=== PATIENT | female | born 1945 | race Caucasian/White ===

== ENCOUNTER 2021-03-26 13:16 | Inpatient (IN) | payer OTHER, MEDICAID ==
[~2021-03-26] VITALS: Ht 157.5 cm; Wt 55.6 kg
[2021-03-26 14:34] LABS: Basophils # (auto) 0.1 10 ^3/uL (0-0.2); Basophils % (auto) 0.5 % (0.0-2.0); Eosinophils # (auto) 0.3 10 ^3/uL (0-0.8); Eosinophils % (auto) 1.9 % (0.0-7.0); Hematocrit 31.9 % (36.0-46.0); Hemoglobin 10.4 g/dL (12.2-16.2); Lymphocytes # (auto) 1.4 10 ^3/uL (0.4-5.4); Lymphocytes % (auto) 9.6 % (10.0-50.0); Mean Corpuscular Hemoglobin 28.8 pg (28.0-32.0); Mean Corpuscular Hgb Conc. 32.7 g/dL (32.0-36.0); Mean Corpuscular Volume 88.2 fL (80.0-100.0); Monocytes # (auto) 0.7 10 ^3/uL (0-1.3); Monocytes % (auto) 4.6 % (0.0-12.0); Neutrophils % (auto) 83.4 % (37.0-80.0); Nucleated Red Blood Cells % 0.1 %; Platelet Count (auto) 438 10^3/uL (140-450); Red Blood Cells 3.62 10^6/uL (4.0-5.20); White Blood Cell 14.3 10^3/uL (4.4-10.8)
[2021-03-26 14:39] LABS: Albumin 3.4 g/dL (3.4-5.0); Anion Gap 11 (5-15); Blood Urea Nitrogen 76 mg/dL (7-18); Calcium 8.7 mg/dL (8.5-10.1); Carbon Dioxide 21 mmol/L (21-32); Chloride 109 mmol/L (98-107); Glucose 180 mg/dL (74-106); Potassium 4.3 mmol/L (3.5-5.1); Sodium 141 mmol/L (136-145)
[2021-03-26 14:44] LABS: Alanine Aminotransferase 13 U/L (13-56); Alkaline Phosphatase 91 U/L (45-117); Aspartate Aminotransferase 15 U/L (15-37); BUN/Creatinine Ratio 39.8; Bilirubin, Total 0.3 mg/dL (0.2-1.0); GFR African American 33 mL/min; GFR Non-African American 27 mL/min; Total Protein 7.4 g/dL (6.4-8.2)
[2021-03-26] MEDS ORDERED: MORPHINE SULF INJ 2 MG/ML SYRINGE 1ML IV ONE (14:45)
[2021-03-26] MEDS ORDERED: ONDANSETRON HCL 4 MG/2 ML VIAL IV ONE (14:45)
[2021-03-26] MEDS ORDERED: NEOMYCIN-BACITRACIN-POLYM UNITDOSE PKG TOP OINT TOP ONE ×2 (15:54→16:00)
[2021-03-26] MEDS ORDERED: MORPHINE SULF INJ 2 MG/ML SYRINGE 1ML IV PRN (17:15)
[2021-03-26] MEDS ORDERED: DOCUSATE SOD 100 MG CAP PO PRN (17:15)
[2021-03-26] MEDS: SODIUM CHLORIDE 0.9% 1,000 ML IV SCH (17:15)
[2021-03-26] MEDS ORDERED: NITROGLYCERIN 0.4 MG SL TAB SL PRN (17:15)
[2021-03-26] MEDS ORDERED: levoFLOXacin 500MG 100 ML IV SCH (17:28)
[2021-03-26] MEDS ORDERED: levoFLOXacin 500MG 100 ML IV ONE (17:45)
[2021-03-26] MEDS: ONDANSETRON HCL 4 MG/2 ML VIAL IV PRN (18:13)
[2021-03-26] MEDS: MORPHINE SULF INJ 2 MG/ML SYRINGE 1ML IV PRN ×2 (18:14→22:43)
[2021-03-26] MEDS: HYDROcodone-ACET 5/325MG TAB PO PRN (20:00)
[2021-03-27] MEDS ORDERED: HYDR12.56 PO (00:36)
[2021-03-27] MEDS ORDERED: LISI-716 PO (00:36)
[2021-03-27] MEDS ORDERED: CLOP75TA28 PO (00:36)
[2021-03-27] MEDS ORDERED: NIFE1TAB31 PO (00:36)
[2021-03-27] MEDS ORDERED: FURO1TAB33 PO (00:36)
[2021-03-27] MEDS: ONDANSETRON HCL 4 MG/2 ML VIAL IV PRN (00:37)
[2021-03-27] MEDS ORDERED: PROMETHAZINE HCL 25 MG/ML 1ML IV ONE (02:45)
[2021-03-27 03:12] LABS: Urine Bacteria FEW /hpf (None Seen); Urine Blood 1+ /uL (Negative); Urine Specific Gravity 1.016 (1.001-1.035); Urine WBC 5 /hpf (0 - 5)
[2021-03-27] MEDS: MORPHINE SULF INJ 2 MG/ML SYRINGE 1ML IV PRN ×2 (03:52→09:23)
[2021-03-27 05:00] VITALS: BP 19/61
[2021-03-27 07:42] LABS: Basophils # (auto) 0 10 ^3/uL (0-0.2); Basophils % (auto) 0.5 % (0.0-2.0); Eosinophils # (auto) 0 10 ^3/uL (0-0.8); Eosinophils % (auto) 0.2 % (0.0-7.0); Hematocrit 28.4 % (36.0-46.0); Hemoglobin 9.5 g/dL (12.2-16.2); Lymphocytes % (auto) 12.8 % (10.0-50.0); Mean Corpuscular Hemoglobin 30.1 pg (28.0-32.0); Mean Corpuscular Hgb Conc. 33.3 g/dL (32.0-36.0); Mean Corpuscular Volume 90.3 fL (80.0-100.0); Monocytes # (auto) 0.4 10 ^3/uL (0-1.3); Monocytes % (auto) 5.8 % (0.0-12.0); Neutrophils # (auto) 6.2 10 ^3/uL (1.6-8.6); Neutrophils % (auto) 80.7 % (37.0-80.0); Platelet Count (auto) 347 10^3/uL (140-450); Red Blood Cells 3.15 10^6/uL (4.0-5.20); Red Cell Distribution Width 14.9 % (11.8-14.3); White Blood Cell 7.7 10^3/uL (4.4-10.8)
[2021-03-27 08:00] LABS: Calcium 8.8 mg/dL (8.5-10.1); Potassium 4.7 mmol/L (3.5-5.1)
[2021-03-27 08:03] LABS: BUN/Creatinine Ratio 33.9
[2021-03-27 09:00] VITALS: BP_SYST 111; BP_SYST 94; BP_DIAS 43; BP_DIAS 57
[2021-03-27] MEDS: FAMOTIDINE 20 MG TAB PO SCH (09:23)
[2021-03-27] MEDS: SODIUM CHLORIDE 0.9% 1,000 ML IV SCH (09:55)
[2021-03-27] MEDS ORDERED: levoFLOXacin 250MG 50 ML IV SCH (10:00)
[2021-03-27] MEDS: HYDROcodone-ACET 5/325MG TAB PO PRN (10:45)
[2021-03-27] MEDS: ACETAMINOPHEN 500 MG TAB PO PRN (12:39)
[2021-03-27 12:53] VITALS: BP 89/48
[2021-03-27 17:00] VITALS: BP 112/58
[2021-03-27] MEDS: ATORVASTATIN 20 MG TAB PO SCH (21:20)
[2021-03-27 22:00] VITALS: BP 135/49
[2021-03-28 05:00] VITALS: BP 117/56
[2021-03-28] MEDS: SODIUM CHLORIDE 0.9% 1,000 ML IV SCH ×2 (05:46→19:15)
[2021-03-28 06:43] LABS: Basophils # (auto) 0 10 ^3/uL (0-0.2); Basophils % (auto) 0.7 % (0.0-2.0); Eosinophils # (auto) 0.3 10 ^3/uL (0-0.8); Eosinophils % (auto) 4.9 % (0.0-7.0); Hemoglobin 8.3 g/dL (12.2-16.2); Lymphocytes # (auto) 1.4 10 ^3/uL (0.4-5.4); Lymphocytes % (auto) 20.1 % (10.0-50.0); Mean Corpuscular Hemoglobin 29.7 pg (28.0-32.0); Mean Corpuscular Hgb Conc. 33.3 g/dL (32.0-36.0); Mean Corpuscular Volume 89.3 fL (80.0-100.0); Monocytes # (auto) 0.5 10 ^3/uL (0-1.3); Neutrophils # (auto) 4.7 10 ^3/uL (1.6-8.6); Neutrophils % (auto) 67.3 % (37.0-80.0); Platelet Count (auto) 271 10^3/uL (140-450)
[2021-03-28 06:56] LABS: BUN/Creatinine Ratio 30.9; Calcium 8.6 mg/dL (8.5-10.1); Potassium 4.8 mmol/L (3.5-5.1)
[2021-03-28 08:30] VITALS: BP 157/66
[2021-03-28] MEDS: MORPHINE SULF INJ 2 MG/ML SYRINGE 1ML IV PRN (09:13)
[2021-03-28] MEDS: FAMOTIDINE 20 MG TAB PO SCH (09:13)
[2021-03-28] MEDS: CLOPIDOGREL BISULFATE 75 MG TAB PO SCH (09:13)
[2021-03-28 12:30] VITALS: BP 137/90
[2021-03-28] MEDS: HYDROcodone-ACET 5/325MG TAB PO PRN ×2 (13:02→19:25)
[2021-03-28 14:56] VITALS: BP 137/90
[2021-03-28 17:13] VITALS: BP 120/54
[2021-03-28] MEDS: ACETAMINOPHEN 500 MG TAB PO PRN (22:48)
[2021-03-28] MEDS: ATORVASTATIN 20 MG TAB PO SCH (22:48)
[2021-03-28 23:59] VITALS: BP 135/71
[2021-03-29] MEDS: HYDROcodone-ACET 5/325MG TAB PO PRN (04:14)
[2021-03-29 05:49] VITALS: BP 159/70
[2021-03-29 08:00] VITALS: BP_SYST 121; BP_SYST 131; BP_DIAS 61; BP_DIAS 68
[2021-03-29] MEDS: CLOPIDOGREL BISULFATE 75 MG TAB PO SCH (09:11)
[2021-03-29] MEDS: FAMOTIDINE 20 MG TAB PO SCH (09:11)
[2021-03-29] MEDS ORDERED: levoFLOXacin 250MG 50 ML IV SCH (10:00)
== END 2021-03-29 12:15 | disposition home health service (06) | DRG 605 ==
LOC: EDBD 13:16 → ER 13:16 → TELE 17:06 → TELE-CENTR 20:47
PROVIDERS: ADMIT Nurse Practitioner Acute Care; ATTEND Internal Medicine
DX: S00.83XA Contusion of other part of head, initial encounter (principal); N39.0 Urinary tract infection, site not specified; N17.9 Acute kidney failure, unspecified; Z20.822 Contact with and (suspected) exposure to COVID-19; S60.211A Contusion of right wrist, initial encounter; S41.111A Laceration without foreign body of right upper arm, initial encounter; S41.112A Laceration without foreign body of left upper arm, initial encounter; I25.10 Atherosclerotic heart disease of native coronary artery without angina pectoris; D72.829 Elevated white blood cell count, unspecified; N18.32 Chronic kidney disease, stage 3b; M85.80 Other specified disorders of bone density and structure, unspecified site; E11.22 Type 2 diabetes mellitus with diabetic chronic kidney disease; I12.9 Hypertensive chronic kidney disease with stage 1 through stage 4 chronic kidney disease, or unspecified chronic kidney disease; I67.2 Cerebral atherosclerosis; W18.39XA Other fall on same level, initial encounter; M48.02 Spinal stenosis, cervical region; E11.51 Type 2 diabetes mellitus with diabetic peripheral angiopathy without gangrene; E11.21 Type 2 diabetes mellitus with diabetic nephropathy; E11.40 Type 2 diabetes mellitus with diabetic neuropathy, unspecified; E78.5 Hyperlipidemia, unspecified; K21.9 Gastro-esophageal reflux disease without esophagitis; Z79.02 Long term (current) use of antithrombotics/antiplatelets; Z89.611 Acquired absence of right leg above knee; Z79.4 Long term (current) use of insulin; Z79.899 Other long term (current) drug therapy; Z86.73 Personal history of transient ischemic attack (TIA), and cerebral infarction without residual deficits; Z90.710 Acquired absence of both cervix and uterus; Z95.1 Presence of aortocoronary bypass graft; Z99.3 Dependence on wheelchair; Y93.89 Activity, other specified; Y92.89 Other specified places as the place of occurrence of the external cause; Y99.8 Other external cause status; I25.2 Old myocardial infarction; Z98.42 Cataract extraction status, left eye
CPT/HCPCS: 36415; 51702; 70450; 72125; 73110; 73562; 80048; 80053; 80061; 81001; 82962; 83036; 84443; 84484; 85025; 87040; 87086; 87426; 96361; 96365; 96375; G0378; J1956; J2405